=== PATIENT | male | born 1955 | race Caucasian/White ===

== ENCOUNTER → 2016-09-08 | Outpatient (CLI) | payer MEDICARE ==
[~2016-09-08] MED LIST: APAP/HYDROCODON1 TA9 PO; AVPAK LEVETIRA500 MG PO; CARVEDILOL6.25 M1 PO; CEPHALEXIN500 M1 PO; CRESTOR10 MG PO; DIAZEPAM10 M1 PO; DOXYCYCLINE HY100 MG PO; GABAPENTIN 600600 MG PO; HYDROCO/APAP TAB 7.5 PO; HYDROCODONE BIT1 T39 PO; HYDROCODONE-APA1 TA2 PO; IBUPROFEN800 MG PO; KEFLEX 500MG.500 MG PO; LISINOPRIL10 MG PO; LISINOPRIL2.5 MG PO; LISINOPRIL5 MG PO; TRAVATAN Z 2.52.5 ML OP; VALIUM10 M1 PO
[2016-09-08 19:23] LABS: AMPHETAMINES/METAMPHETAMINES NEGATIVE ng/mL (<1000)
[2016-09-14 16:39] LABS: Opiates Negative ng/mL (Cutoff=100)
== END ==
LOC: LAB 17:54
PROVIDERS: Emergency Medicine
DX: Z79.899 Other long term (current) drug therapy (principal)

== ENCOUNTER → 2016-10-06 | Outpatient (CLI) | payer MEDICARE ==
[2016-10-06 19:21] LABS: AMPHETAMINES/METAMPHETAMINES NEGATIVE ng/mL (<1000)
[2016-10-15 14:39] LABS: Opiates Negative (Cutoff=100)
== END ==
LOC: LAB 16:58
PROVIDERS: Emergency Medicine
DX: Z79.899 Other long term (current) drug therapy (principal)

== ENCOUNTER → 2016-10-31 | Outpatient (CLI) | payer MEDICARE ==
[2016-10-31 17:21] LABS: AMPHETAMINES/METAMPHETAMINES NEGATIVE ng/mL (<1000)
== END ==
LOC: LAB 16:22
PROVIDERS: Emergency Medicine
DX: Z79.899 Other long term (current) drug therapy (principal)

== ENCOUNTER → 2017-05-13 | Outpatient (CLI) | payer MEDICARE ==
[~2017-05-13] MED LIST changes: +PREDNISONE 20MG20 MG PO
[2017-05-13 15:49] LABS: AMPHETAMINES/METAMPHETAMINES NEGATIVE ng/mL (<1000)
[2017-05-21 20:36] LABS: Opiates Negative (Cutoff=100)
== END ==
LOC: LAB 14:20
PROVIDERS: Emergency Medicine
DX: Z79.899 Other long term (current) drug therapy (principal)

== ENCOUNTER → 2017-06-05 | Outpatient (CLI) | payer MEDICARE ==
[2017-06-05 15:55] LABS: AMPHETAMINES/METAMPHETAMINES NEGATIVE ng/mL (<1000)
== END ==
LOC: LAB 15:11
PROVIDERS: Emergency Medicine
DX: Z79.899 Other long term (current) drug therapy (principal)

== ENCOUNTER → 2017-07-03 | Outpatient (CLI) | payer MEDICARE ==
[2017-07-03 15:45] LABS: AMPHETAMINES/METAMPHETAMINES NEGATIVE ng/mL (<1000)
== END ==
LOC: LAB 15:26
PROVIDERS: Emergency Medicine
DX: Z79.899 Other long term (current) drug therapy (principal)

== ENCOUNTER → 2017-07-31 | Outpatient (CLI) | payer MEDICARE ==
[2017-07-31 19:12] LABS: AMPHETAMINES/METAMPHETAMINES NEGATIVE ng/mL (<1000)
== END ==
LOC: LAB 18:09
PROVIDERS: Emergency Medicine
DX: Z79.899 Other long term (current) drug therapy (principal)